=== PATIENT | female | born 1965 | race African-American/Black ===

== ENCOUNTER → 2019-02-27 10:25 | Outpatient (CLI) | payer BC ==
--- NOTE | 2019-03-02 11:25 | EC ---
PATIENT:RAVINDER RUSSELL DATE OF SERVICE: 02/27/19 SEX: F MEDICAL RECORD: [id number] DATE OF : 61 LOCATION:D[facility] AGE OF PATIENT: 53 ADMISSION DATE: 02/27/19 REFERRING PHYSICIAN: INTERPRETING PHYSICIAN: MAKENZIE COELHO MD ECHOCARDIOGRAM REPORT ECHO CHARGES 4 ECHO COMPLETE Date: 02/27/19 CLINICAL DIAGNOSIS: MVP H/O HTN ECHOCARDIOGRAPHIC MEASUREMENTS (adult normal given) AC root (d.<3.7cm) 2.6 cm LV Septum d (<1.2 cm> 1.1 cm Valve Excursion 1.9 cm LV Septum (systole) 1.6 cm Left Atria (s.<4.0cm> 3.3 cm LVPW d(<1.2cm) 1.0 cm RV (d.<2.3cm) 2.4 cm LVPW (sytole) 1.4 cm LV diastole(<5.6CM) 4.5 cm MV E-F(>70mm/sec) cm LV systole 2.5 cm LVOT Diameter 1.9 cm MV exc.(>10mm) cm Est.ejection fraction (50-75%) % DOPPLER: LVIT cm/sec A 104 cm/sec E 89.0 cm/sec LA cm/sec RVSP 29.4 mmHg LVOT 104 cm/sec AOP1/2T m/s Asc. Ao 129 cm/sec RVOT 50.0 cm/sec RA cm/sec PA 74.0 cm/sec AV Gradient Peak 6.7 mmHg AV Mean 3.7 mmHg AV Area 1.9 cm MV Gradient Peak 7.6 mmHg MV Mean 3.3 mmHg MV Area cm COMMENTS: OP - HC Front End Java Developer: 1 KOBI KELSEY Senior Information Security Consultant: 3 Dr. Geronimo TAPE# PACS Pericardial Effusion N DATE OF SERVICE: Adequate 2D, color flow imaging, spectral Doppler, and M-Mode No LVH. LV internal dimension is normal. Wall motion is normal. EF is greater than or equal to 55%. Aortic valve is tricuspid. No evidence of stenosis by Doppler interrogation. Left atrium is normal at 3.3 cm. Mitral valve shows some redundancy of the posterior leaflet. Trace MR. Right-sided chambers are grossly normal. Trace TR. Also, noted some redundancy of the interatrial septum as well. ECHOCARDIOGRAM REPORT [id number] RAVINDER RUSSELL CHUNG FRANCISCA TRANSINT:[id number] Voice Confirmation ID: [id number] DOCUMENT ID: [id number] MAKENZIE COELHO MD at 1125 CC: [id number] DICTATION DATE: 02/28/19 1012 DISPENSING OPTICIAN APPRENTICE: 02/28/19 1158 DEP CLI 02/27/19 [place] [id number] [place] [id number]
== END | disposition home or self-care (01) ==
LOC: D.HCCECHO 10:25
PROVIDERS: ATTEND Internal Medicine Interventional Cardiology
DX: I34.1 Nonrheumatic mitral (valve) prolapse (principal)